=== PATIENT | male | born 1975 | race Asian ===

== ENCOUNTER 2018-11-13 11:33 | Emergency (ER) | payer SELFPAY ==
[~2018-11-13] VITALS: Ht 180.3 cm; Wt 78.9 kg
[2018-11-13 12:16] VITALS: BP 116/61; Ht 180.3 cm; Wt 78.9 kg
== END 2018-11-13 15:15 | disposition home or self-care (01) ==
LOC: ED 11:33
DX: S00.33XA Contusion of nose, initial encounter (principal); W20.8XXA Other cause of strike by thrown, projected or falling object, initial encounter; Y93.89 Activity, other specified; Y92.89 Other specified places as the place of occurrence of the external cause; Y99.8 Other external cause status